=== PATIENT | male | born 1955 | race Caucasian/White ===

== ENCOUNTER 2022-07-16 01:43 | Emergency (ER) | payer OTHER ==
[2022-07-16 02:52] LABS: ALT (SGPT) 11 U/L (8-55); AST (SGOT) 18 U/L (5-34); Albumin 4.3 g/dL (3.4-4.8); Alkaline Phosphatase 69 U/L (40-110); Anion Gap 14 mmol/L (10-20); BUN (Urea Nitrogen) 32 mg/dL (8.4-25.7); Bilirubin, Total 0.6 mg/dL (0.2-1.2); Calc. Creatinine Clearance 0 mL/min (70-130); Calcium 9.4 mg/dL (7.8-10.44); Carbon Dioxide 26 mmol/L (23-31); Chloride 104 mmol/L (98-107); Estimated GFR 30; Globulin 3.7 g/dL (2.4-3.5); Glucose 111 mg/dL (80-115); Potassium 4.8 mmol/L (3.5-5.1); Sodium 139 mmol/L (136-145)
[2022-07-16 03:21] LABS: #Eosinphils 0.2 10x3/uL (0.0-0.5); #Monocytes 0.6 10x3/uL (0.0-1.1); #Neutrophils 3.7 10x3/uL (1.5-8.4); %Basophils 0.7 % (0.0-2.0); %Eosinophils 3.1 % (0.0-6.0); %Lymphocytes 25.6 % (18.0-47.0); %Monocytes 9.8 % (0.0-10.0); %Neutrophils 60.5 % (40.0-75.0); Hemoglobin 10.9 g/dL (13.5-17.5); Mean Corpuscular HGB CONC 30.4 g/dL (32.0-36.0); Mean Corpuscular Volume 88.6 fl (81.2-95.1); Mean Platelet Volume 10.9 fl (7.4-10.4); Platelet Count 175 10x3/uL (150-450); RBC Distribution Width 14.9 % (11.5-14.5); Red Blood Cell (RBC) Count 4.04 10x6/uL (4.32-5.72); White Blood Cell (WBC) Count 6.1 10x3/uL (3.5-10.5)
[2022-07-16] MEDS ORDERED: Furosemide 40 MG/4 ML VIAL ONE (03:49)
[2022-07-16 04:11] LABS: SARS-CoV-2 NAA Rapid Test Not Detected (NotDetected)
[2022-07-16] MEDS ORDERED: Nitroglycerin 0.4 MG TAB 1 EACH ONE (10:38)
== END 2022-07-16 11:01 | disposition short-term general hospital (02) ==
LOC: EDBD 01:43 → CSHERS 01:43
DX: I50.9 Heart failure, unspecified (principal); N17.9 Acute kidney failure, unspecified; Z20.822 Contact with and (suspected) exposure to COVID-19
CPT/HCPCS: 36415; 71045; 80053; 83605; 83880; 84484; 85025; 93005; 96374; J1940; U0002

== ENCOUNTER 2022-07-21 17:00 | Emergency (ER) | payer OTHER ==
[2022-07-21 18:39] LABS: #Basophils 0.1 10x3/uL (0.0-0.2); #Eosinphils 0.2 10x3/uL (0.0-0.5); #Neutrophils 6.4 10x3/uL (1.5-8.4); %Basophils 0.6 % (0.0-2.0); %Eosinophils 1.7 % (0.0-6.0); %Lymphocytes 22.2 % (18.0-47.0); %Monocytes 10.5 % (0.0-10.0); %Neutrophils 64.7 % (40.0-75.0); Hemoglobin 11.4 g/dL (13.5-17.5); Mean Corpuscular HGB CONC 31.5 g/dL (32.0-36.0); Mean Corpuscular Hemoglobin 27.4 pg (27.0-33.0); Mean Platelet Volume 10.6 fl (7.4-10.4); Platelet Count 254 10x3/uL (150-450); RBC Distribution Width 14.7 % (11.5-14.5); Red Blood Cell (RBC) Count 4.16 10x6/uL (4.32-5.72); White Blood Cell (WBC) Count 9.9 10x3/uL (3.5-10.5)
[2022-07-21 18:54] LABS: ALT (SGPT) 12 U/L (8-55); AST (SGOT) 22 U/L (5-34); Albumin 4.2 g/dL (3.4-4.8); Alkaline Phosphatase 71 U/L (40-110); Anion Gap 17 mmol/L (10-20); BUN (Urea Nitrogen) 37 mg/dL (8.4-25.7); Bilirubin, Total 0.6 mg/dL (0.2-1.2); Calc. Creatinine Clearance 0 mL/min (70-130); Calcium 9.8 mg/dL (7.8-10.44); Carbon Dioxide 23 mmol/L (23-31); Chloride 101 mmol/L (98-107); Estimated GFR 32; Globulin 4.2 g/dL (2.4-3.5); Glucose 116 mg/dL (80-115); Magnesium 2.4 mg/dL (1.6-2.6); Potassium 4.4 mmol/L (3.5-5.1); Protein, Total 8.4 g/dL (5.8-8.1); Sodium 137 mmol/L (136-145)
[2022-07-21 19:51] LABS: SARS-CoV-2 NAA Rapid Test Not Detected (NotDetected)
== END 2022-07-21 23:16 | disposition short-term general hospital (02) ==
LOC: EEVIPCON 17:00 → CSHERS 17:00
DX: I44.1 Atrioventricular block, second degree (principal); R79.89 Other specified abnormal findings of blood chemistry; Z20.822 Contact with and (suspected) exposure to COVID-19; I10 Essential (primary) hypertension; I50.9 Heart failure, unspecified; E10.9 Type 1 diabetes mellitus without complications; Z79.4 Long term (current) use of insulin; Z79.899 Other long term (current) drug therapy
CPT/HCPCS: 71045; 80053; 83735; 84443; 84484; 85025; 93005; 94760; 96360; 96361; U0002

== ENCOUNTER 2022-07-28 18:11 | Inpatient (IN) | payer OTHER ==
[2022-07-28] MEDS ORDERED: EPINEPHrine 1 MG/ML AMP ONE (18:19)
[2022-07-28 19:19] LABS: #Basophils 0.1 10x3/uL (0.0-0.2); #Eosinphils 0.2 10x3/uL (0.0-0.5); #Monocytes 0.8 10x3/uL (0.0-1.1); #Neutrophils 4.8 10x3/uL (1.5-8.4); %Basophils 0.8 % (0.0-2.0); %Eosinophils 2.6 % (0.0-6.0); %Lymphocytes 35.2 % (18.0-47.0); %Monocytes 8.9 % (0.0-10.0); %Neutrophils 52.1 % (40.0-75.0); Hemoglobin 11.6 g/dL (13.5-17.5); Mean Corpuscular HGB CONC 31.4 g/dL (32.0-36.0); Mean Corpuscular Hemoglobin 26.9 pg (27.0-33.0); Mean Corpuscular Volume 85.6 fl (81.2-95.1); Mean Platelet Volume 11.3 fl (7.4-10.4); Platelet Count 306 10x3/uL (150-450); RBC Distribution Width 14.4 % (11.5-14.5); Red Blood Cell (RBC) Count 4.31 10x6/uL (4.32-5.72); White Blood Cell (WBC) Count 9.1 10x3/uL (3.5-10.5)
[2022-07-28 19:30] LABS: ALT (SGPT) 14 U/L (8-55); AST (SGOT) 24 U/L (5-34); Alkaline Phosphatase 69 U/L (40-110); Anion Gap 18 mmol/L (10-20); BUN (Urea Nitrogen) 52 mg/dL (8.4-25.7); Bilirubin, Total 0.4 mg/dL (0.2-1.2); Calc. Creatinine Clearance 0 mL/min (70-130); Calcium 9.5 mg/dL (7.8-10.44); Carbon Dioxide 21 mmol/L (23-31); Chloride 101 mmol/L (98-107); Estimated GFR 27; Globulin 4.2 g/dL (2.4-3.5); Glucose 111 mg/dL (80-115); Magnesium 2.5 mg/dL (1.6-2.6); Potassium 4.4 mmol/L (3.5-5.1); Protein, Total 8.2 g/dL (5.8-8.1); Sodium 136 mmol/L (136-145)
[2022-07-28 19:36] LABS: SARS-CoV-2 NAA Rapid Test Not Detected (NotDetected)
[2022-07-28 19:50] LABS: CKMB 2.6 ng/mL (0-6.6)
[2022-07-28] MEDS ORDERED: Dextrose 5% in Water 1,000 ML IV PRN (20:09)
[2022-07-28] MEDS ORDERED: Dextrose 50% Abboject 50 ML SYRINGE SLOW IVP PRN (20:09)
[2022-07-28] MEDS ORDERED: Simvastatin 10 MG TAB PO SCH (21:45)
[2022-07-28] MEDS: Sodium Chloride 0.9% 1,000 ML IV SCH (21:49)
[2022-07-28] MEDS ORDERED: EPINEPHrine 4 MG in Dextrose 5% in Water 250 ML IV SCH (22:00)
[2022-07-28 22:33] LABS: Magnesium 2.4 mg/dL (1.6-2.6)
[2022-07-28 22:40] LABS: Troponin I 0.024 ng/mL (< 0.028)
[2022-07-28] MEDS: Simvastatin 10 MG TAB PO SCH (23:20)
[2022-07-29 01:59] LABS: Troponin I 0.019 ng/mL (< 0.028)
[2022-07-29 04:09] LABS: #Basophils 0.1 10x3/uL (0.0-0.2); #Monocytes 0.7 10x3/uL (0.0-1.1); #Neutrophils 9.5 10x3/uL (1.5-8.4); %Basophils 0.5 % (0.0-2.0); %Eosinophils 0.2 % (0.0-6.0); %Lymphocytes 14.4 % (18.0-47.0); %Neutrophils 78.5 % (40.0-75.0); Hemoglobin 11.1 g/dL (13.5-17.5); Mean Corpuscular HGB CONC 30.4 g/dL (32.0-36.0); Mean Corpuscular Hemoglobin 26.6 pg (27.0-33.0); Mean Corpuscular Volume 87.3 fl (81.2-95.1); Mean Platelet Volume 10.6 fl (7.4-10.4); Platelet Count 320 10x3/uL (150-450); RBC Distribution Width 14.4 % (11.5-14.5); Red Blood Cell (RBC) Count 4.18 10x6/uL (4.32-5.72); White Blood Cell (WBC) Count 12.2 10x3/uL (3.5-10.5)
[2022-07-29 04:21] LABS: Anion Gap 22 mmol/L (10-20); BUN (Urea Nitrogen) 57 mg/dL (8.4-25.7); Calc. Creatinine Clearance 34 mL/min (70-130); Calcium 9.3 mg/dL (7.8-10.44); Carbon Dioxide 16 mmol/L (23-31); Chloride 101 mmol/L (98-107); Estimated GFR 28; Glucose 342 mg/dL (80-115); Potassium 5.3 mmol/L (3.5-5.1); Sodium 134 mmol/L (136-145)
[2022-07-29] MEDS: HumaLOG 300 UNITS/3 ML VIAL SC PRN ×2 (05:50→12:20)
[2022-07-29] MEDS ORDERED: Insulin Regular 300 UNITS/3 ML VIAL IVP SCH (08:45)
[2022-07-29] MEDS: DULoxetine 30 MG CAP PO SCH (08:53)
[2022-07-29] MEDS: NPH, Human Insulin Isophane 300 UNIT/3 ML VIAL SC SCH ×3 (08:53→17:02)
[2022-07-29] MEDS: Aspirin 81 mg Enteric Coated Tablet PO SCH (08:54)
[2022-07-29] MEDS: Clopidogrel Bisulfate 75 MG TAB PO SCH (08:54)
[2022-07-29] MEDS: Insulin Regular 300 UNITS/3 ML VIAL SC SCH ×2 (08:54→17:02)
[2022-07-29] MEDS: Sodium Chloride 0.9% 1,000 ML IV SCH ×2 (09:36→23:56)
[2022-07-29 13:31] LABS: Anion Gap 15 mmol/L (10-20); Carbon Dioxide 20 mmol/L (23-31); Chloride 104 mmol/L (98-107); Potassium 4.1 mmol/L (3.5-5.1); Sodium 135 mmol/L (136-145)
[2022-07-29 15:25] LABS: Hemoglobin A1c 6.8 % (4.0-6.0)
[2022-07-29] MEDS: Simvastatin 10 MG TAB PO SCH (20:05)
[2022-07-30 04:15] LABS: Hemoglobin 11.4 g/dL (13.5-17.5); Mean Corpuscular HGB CONC 30.6 g/dL (32.0-36.0); Mean Corpuscular Hemoglobin 26.5 pg (27.0-33.0); Mean Corpuscular Volume 86.7 fl (81.2-95.1); Mean Platelet Volume 10.5 fl (7.4-10.4); Platelet Count 251 10x3/uL (150-450); RBC Distribution Width 14.8 % (11.5-14.5); White Blood Cell (WBC) Count 6.1 10x3/uL (3.5-10.5)
[2022-07-30 04:30] LABS: Anion Gap 16 mmol/L (10-20); BUN (Urea Nitrogen) 38 mg/dL (8.4-25.7); Calc. Creatinine Clearance 56 mL/min (70-130); Calcium 9.7 mg/dL (7.8-10.44); Carbon Dioxide 21 mmol/L (23-31); Chloride 109 mmol/L (98-107); Estimated GFR 51; Glucose 113 mg/dL (80-115); Potassium 4.8 mmol/L (3.5-5.1); Sodium 141 mmol/L (136-145)
[2022-07-30 05:02] VITALS: BMI 30.1
[2022-07-30 07:55] VITALS: BP 134/79; TEMP 98.5
[2022-07-30] MEDS: Insulin Regular 300 UNITS/3 ML VIAL SC SCH (08:31)
[2022-07-30] MEDS: Clopidogrel Bisulfate 75 MG TAB PO SCH (08:31)
[2022-07-30] MEDS: Aspirin 81 mg Enteric Coated Tablet PO SCH (08:31)
[2022-07-30] MEDS: DULoxetine 30 MG CAP PO SCH (08:31)
[2022-07-30] MEDS: NPH, Human Insulin Isophane 300 UNIT/3 ML VIAL SC SCH (08:32)
== END 2022-07-30 11:50 | DRG 309 ==
LOC: CSHERS 18:11 → EEVIPCON 18:11 → CSHICU 21:14
PROVIDERS: ADMIT Family Medicine; ATTEND Internal Medicine
PROC: 3E033XZ Introduction of Vasopressor into Peripheral Vein, Percutaneous Approach (ICD-10-PCS; principal; 2022-07-28)
DX: I44.1 Atrioventricular block, second degree (principal); I13.0 Hypertensive heart and chronic kidney disease with heart failure and stage 1 through stage 4 chronic kidney disease, or unspecified chronic kidney disease; N17.9 Acute kidney failure, unspecified; R00.1 Bradycardia, unspecified; Z20.822 Contact with and (suspected) exposure to COVID-19; N18.9 Chronic kidney disease, unspecified; J45.20 Mild intermittent asthma, uncomplicated; E87.5 Hyperkalemia; I50.9 Heart failure, unspecified; I95.9 Hypotension, unspecified; E78.5 Hyperlipidemia, unspecified; E10.22 Type 1 diabetes mellitus with diabetic chronic kidney disease; Z88.8 Allergy status to other drugs, medicaments and biological substances; Z91.010 Allergy to peanuts; Z88.0 Allergy status to penicillin; Z79.82 Long term (current) use of aspirin; Z79.02 Long term (current) use of antithrombotics/antiplatelets; Z79.4 Long term (current) use of insulin; Z79.899 Other long term (current) drug therapy; Z82.3 Family history of stroke; Z83.3 Family history of diabetes mellitus
CPT/HCPCS: 36415; 36416; 51702; 71045; 80048; 80053; 82010; 82553; 83036; 83735; 83880; 84439; 84443; 84484; 85025; 85027; 93005; 93010; 93306; 96365; 96366; J0171; J1650; J1815; J7050; J7070; U0002

== ENCOUNTER 2023-02-05 05:38 | Emergency (ER) | payer OTHER ==
[2023-02-05] MEDS ORDERED: Dextrose 50% Abboject 50 ML SYRINGE ONE (05:44)
[2023-02-05 06:16] LABS: #Monocytes 0.4 10x3/uL (0.0-1.1); #Neutrophils 2.6 10x3/uL (1.5-8.4); %Basophils 0.9 % (0.0-2.0); %Eosinophils 0.9 % (0.0-6.0); %Lymphocytes 26.2 % (18.0-47.0); %Monocytes 10.1 % (0.0-10.0); %Neutrophils 61.7 % (40.0-75.0); Hematocrit 38.5 % (38.8-50.0); Mean Corpuscular HGB CONC 31.2 g/dL (32.0-36.0); Mean Corpuscular Hemoglobin 27.1 pg (27.0-33.0); Mean Corpuscular Volume 87.1 fl (81.2-95.1); Mean Platelet Volume 10.4 fl (7.4-10.4); Platelet Count 240 10x3/uL (150-450); Red Blood Cell (RBC) Count 4.42 10x6/uL (4.32-5.72); White Blood Cell (WBC) Count 4.2 10x3/uL (3.5-10.5)
[2023-02-05 06:25] LABS: ALT (SGPT) 12 U/L (8-55); AST (SGOT) 21 U/L (5-34); Albumin 3.3 g/dL (3.4-4.8); Alkaline Phosphatase 64 U/L (40-110); Anion Gap 14 mmol/L (10-20); BUN (Urea Nitrogen) 19 mg/dL (8.4-25.7); Bilirubin, Total 0.3 mg/dL (0.2-1.2); Calc. Creatinine Clearance 0 mL/min (70-130); Calcium 8.5 mg/dL (7.8-10.44); Carbon Dioxide 23 mmol/L (23-31); Chloride 103 mmol/L (98-107); Estimated GFR 54; Globulin 3.5 g/dL (2.4-3.5); Glucose 300 mg/dL (80-115); Lipase 34 U/L (8-78); Magnesium 2.2 mg/dL (1.6-2.6); Potassium 4.7 mmol/L (3.5-5.1); Protein, Total 6.8 g/dL (5.8-8.1); Sodium 135 mmol/L (136-145)
[2023-02-05 06:32] LABS: Troponin I 0.031 ng/mL (< 0.028)
== END 2023-02-05 07:45 ==
LOC: EEVIPCON 05:38 → CSHERS 05:38
DX: E11.649 Type 2 diabetes mellitus with hypoglycemia without coma (principal); I11.0 Hypertensive heart disease with heart failure; I50.9 Heart failure, unspecified; E78.5 Hyperlipidemia, unspecified; Z79.82 Long term (current) use of aspirin; Z79.4 Long term (current) use of insulin; Z79.899 Other long term (current) drug therapy
CPT/HCPCS: 36415; 36416; 71045; 80053; 83690; 83735; 84443; 84484; 85025; 93005; 96374; J7999